=== PATIENT | male | born 1965 | race Caucasian/White ===

== ENCOUNTER 2019-02-08 13:20 | Outpatient (CLI) | payer OTHER ==
--- NOTE | 2019-02-08 17:59 | MRI ---
RIGHT KNEE MRI WITHOUT IV CONTRAST: 02/08/19 HISTORY: Right knee pain in lateral portion. Multiplanar, multisequence MRI examination of the right knee is performed. No significant abnormal rubi int effusion. 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 The later al meniscus appears unremarkable. There is an abnormal appearance to the medial meniscus extending fr om the posterior horn into the body, evidence for a complex tear with considerable meniscal volume lo ss of the body. There is abnormal thickening and prominent increased signal within the ACL, evidence for significant mucoid degeneration with an interosseous ganglion cyst within the medial aspect of th e lateral femoral condyle at the ACL insertion region, evidence for interosseous ganglion cyst. The p osterior cruciate ligament appears intact. Collateral ligament complexes are unremarkable. The irene ceps and patellar tendons are intact. There are some minimal subchondral cystic changes within the pr oximal tibia and intercondylar eminence region. IMPRESSION: Fairly extensive tear of the medial meniscus involving the posterior horn and body with marked menisc al volume loss of the posterior body. Increased thickening and abnormal fluid density within the ACL, evidence for mucoid degeneration. Interosseous ganglion cyst involving the medial aspect of the lat eral femoral condyle at the ACL insertion region. Minimal interosseous cystic changes involving the p roximal tibia including the intercondylar eminence region. 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 Other findings as above. POS: [facility]
== END 2019-02-08 13:21 | disposition home or self-care (01) ==
LOC: SCSMRI 13:20
PROVIDERS: ATTEND Orthopaedic Surgery
DX: M25.561 Pain in right knee (principal); S83.231A Complex tear of medial meniscus, current injury, right knee, initial encounter; M67.461 Ganglion, right knee

== ENCOUNTER 2019-02-23 18:17 | Emergency (ER) | payer OTHER ==
[2019-02-23 20:16] LABS: #Basophils 0.1 thou/uL (0.0-0.2); #Eosinphils 0.1 thou/uL (0.0-0.7); #Lymphocytes 2.5 thou/uL (1.20-3.40); #Monocytes 1.1 thou/uL (0.11-0.59); #Neutrophils 5.7 thou/uL (1.40-6.50); %Eosinophils 1.5 % (0.0-10.0); %Lymphocytes 26.4 % (21.0-51.0); %Monocytes 11.2 % (0.0-10.0); Hemoglobin 15.8 g/dL (14.0-18.0); Mean Corpuscular HGB CONC 34.5 g/dL (32.0-36.0); Mean Corpuscular Hemoglobin 32.4 pg (27.0-31.0); Mean Corpuscular Volume 93.7 fL (78.0-98.0); Mean Platelet Volume 8.4 fL (7.4-10.4); Platelet Count 154 thou/uL (130-400); RBC Distribution Width 11.9 % (11.5-14.5); Red Blood Cell (RBC) Count 4.89 mill/uL (4.70-6.10); White Blood Cell (WBC) Count 9.6 thou/uL (4.8-10.8)
[2019-02-23] MEDS ORDERED: Ketorolac Tromethamine 30 MG/ML VIAL ONE (20:24)
[2019-02-23] MEDS ORDERED: Dexamethasone 10 MG/ML VIAL ONE (20:24)
[2019-02-23] MEDS ORDERED: Clindamycin/D5W 900 mg/50 ml Premix Bag ONE (20:26)
[2019-02-23 20:41] LABS: ALT (SGPT) 150 U/L (8-55); AST (SGOT) 99 U/L (5-34); Albumin 4.3 g/dL (3.5-5.0); Alkaline Phosphatase 86 U/L (40-150); Anion Gap 14 mmol/L (10-20); BUN (Urea Nitrogen) 11 mg/dL (8.4-25.7); Bilirubin, Total 1.4 mg/dL (0.2-1.2); Calc. Creatinine Clearance 0 mL/min (70-130); Carbon Dioxide 27 mmol/L (22-29); Chloride 97 mmol/L (98-107); Estimated GFR-MDRD Greater than 90; Glucose 91 mg/dL (70-105); Potassium 3.8 mmol/L (3.5-5.1); Protein, Total 7.3 g/dL (6.0-8.3); Sodium 134 mmol/L (136-145)
== END 2019-02-23 21:09 | disposition home or self-care (01) ==
LOC: ERS 18:17
DX: K04.7 Periapical abscess without sinus (principal); K02.9 Dental caries, unspecified; F17.210 Nicotine dependence, cigarettes, uncomplicated
CPT/HCPCS: 36415; 80053; 83605; 85025; 96365; 96375; J1100; J1885; J3490

== ENCOUNTER 2020-12-09 16:10 | Outpatient (CLI) | payer OTHER | END 2020-12-09 16:11 | disposition home or self-care (01) | LOC: RAD 16:10 | PROVIDERS: ATTEND Family Medicine | DX: J45.30 Mild persistent asthma, uncomplicated (principal); R05 Cough; Z72.0 Tobacco use; R91.8 Other nonspecific abnormal finding of lung field | CPT/HCPCS: 71046 ==

== ENCOUNTER 2020-12-26 18:00 | Inpatient (IN) | payer OTHER ==
[~2020-12-26 18:00] MED LIST: Iopamidol-370 76% 500 ML 1 ML ONE
[2020-12-26 18:34] LABS: #Basophils 0.1 thou/uL (0.0-0.2); #Eosinphils 0.2 thou/uL (0.0-0.7); #Monocytes 0.6 thou/uL (0.11-0.59); #Neutrophils 3.2 thou/uL (1.40-6.50); %Basophils 1.2 % (0.0-1.0); %Eosinophils 2.9 % (0.0-10.0); %Lymphocytes 33.3 % (21.0-51.0); %Monocytes 9.5 % (0.0-10.0); %Neutrophils 53.2 % (42.0-75.0); Hemoglobin 12.2 g/dL (14.0-18.0); Mean Corpuscular HGB CONC 34.3 g/dL (32.0-36.0); Mean Corpuscular Hemoglobin 34.5 pg (27.0-31.0); Mean Platelet Volume 7.8 fL (7.4-10.4); Platelet Count 113 thou/uL (130-400); RBC Distribution Width 13.5 % (11.5-14.5); Red Blood Cell (RBC) Count 3.53 mill/uL (4.70-6.10); White Blood Cell (WBC) Count 6.1 thou/uL (4.8-10.8)
[2020-12-26 18:48] LABS: ALT (SGPT) 35 U/L (8-55); AST (SGOT) 84 U/L (5-34); Albumin 2.8 g/dL (3.5-5.0); Alkaline Phosphatase 87 U/L (40-110); Anion Gap 12 mmol/L (10-20); BUN (Urea Nitrogen) 19 mg/dL (8.4-25.7); Calc. Creatinine Clearance 0 mL/min (70-130); Calcium 8.4 mg/dL (7.8-10.44); Carbon Dioxide 25 mmol/L (22-29); Chloride 102 mmol/L (98-107); Globulin 3.8 g/dL (2.4-3.5); Glucose 108 mg/dL (70-105); Lipase 92 U/L (8-78); Platelet Morphology Comment Appears Decreased; Potassium 3.5 mmol/L (3.5-5.1); Protein, Total 6.6 g/dL (6.0-8.3); RBC Morphology Normal; Sodium 135 mmol/L (136-145)
[2020-12-26 19:25] LABS: Bilirubin Moderate (Negative); Blood, Urine Negative (Negative); Glucose, Urine (Dipstick) Negative (Negative); Ketone, Urine Trace mg/dL (Negative); Leukocyte Negative (Negative); Nitrite Positive (Negative); Protein, Urine (Dipstick) Trace mg/dL (Neg-Trace); Specific Gravity, Urine 1.025 (1.005-1.030); Urobilinogen > or = 8.0 mg/dL (Less than 2)
[2020-12-26 19:29] LABS: Mucous/LPF 1+ LPF (<2+); RBC/HPF None Seen HPF (0-3); Squamous Epithelial 0-3 HPF (0-3); WBC/HPF 0-3 HPF (0-3)
[2020-12-26 19:40] LABS: Bacteria/HPF 1+ HPF (None Seen)
[2020-12-26 19:42] LABS: Clarity Hazy (Clear)
[2020-12-26] MEDS ORDERED: cefTRIAXone\\ROCEPHIN 1 GM VIAL ONE (22:34)
[2020-12-27 01:38] VITALS: BMI 28.6
[2020-12-27] MEDS ORDERED: Acetaminophen 325 MG TAB PO PRN (02:29)
[2020-12-27] MEDS ORDERED: Ondansetron PF 4 MG/2 ML Vial IVP PRN (02:29)
[2020-12-27] MEDS ORDERED: Pantoprazole 40 MG VIAL IVP SCH ×2 (02:45→21:00)
[2020-12-27] MEDS ORDERED: Furosemide 20 MG/2 ML VIAL SLOW IVP SCH (02:45)
[2020-12-27] MEDS: Nicotine 14 MG PATCH TD SCH (02:57)
[2020-12-27 06:04] LABS: #Eosinphils 0.1 thou/uL (0.0-0.7); #Lymphocytes 1.9 thou/uL (1.20-3.40); #Monocytes 0.6 thou/uL (0.11-0.59); #Neutrophils 3.6 thou/uL (1.40-6.50); %Basophils 0.3 % (0.0-1.0); %Eosinophils 1.3 % (0.0-10.0); %Lymphocytes 30.6 % (21.0-51.0); %Monocytes 10.2 % (0.0-10.0); %Neutrophils 57.6 % (42.0-75.0); Hemoglobin 12.1 g/dL (14.0-18.0); Mean Corpuscular HGB CONC 33.5 g/dL (32.0-36.0); Mean Corpuscular Hemoglobin 33.8 pg (27.0-31.0); Mean Platelet Volume 7.9 fL (7.4-10.4); Platelet Count 115 thou/uL (130-400); RBC Distribution Width 13.3 % (11.5-14.5); Red Blood Cell (RBC) Count 3.59 mill/uL (4.70-6.10); White Blood Cell (WBC) Count 6.3 thou/uL (4.8-10.8)
[2020-12-27 06:10] LABS: INR-International Normal Ratio 1.5; Prothrombin Time 18.7 sec (12.0-14.7)
[2020-12-27 06:20] LABS: ALT (SGPT) 36 U/L (8-55); AST (SGOT) 84 U/L (5-34); Albumin 2.8 g/dL (3.5-5.0); Alkaline Phosphatase 76 U/L (40-110); Bilirubin, Direct 2.3 mg/dL (0.1-0.3); Bilirubin, Total 4.4 mg/dL (0.2-1.2); Protein, Total 6.7 g/dL (6.0-8.3)
[2020-12-27 06:21] LABS: Anion Gap 10 mmol/L (10-20); BUN (Urea Nitrogen) 16 mg/dL (8.4-25.7); Calc. Creatinine Clearance 141 mL/min (70-130); Calcium 8.4 mg/dL (7.8-10.44); Carbon Dioxide 24 mmol/L (22-29); Chloride 102 mmol/L (98-107); Glucose 105 mg/dL (70-105); Magnesium 1.8 mg/dL (1.6-2.6)
[2020-12-27 06:28] LABS: Potassium 3.3 mmol/L (3.5-5.1); Sodium 133 mmol/L (136-145)
[2020-12-27 08:02] LABS: HBCM Index 0.25 S/CO (0-0.79); HBSAg Index 0.17 S/CO (0-0.99); Hep A IgM AB Non-Reactive (NonReactive); Hep B Surf Ag Non-Reactive S/CO (NonReactive); Hepatitis B Core IgM Abs Non-Reactive (NonReactive)
[2020-12-27 08:03] LABS: Hep C IgG Ab Reflex HepC Qnt (NonReactive); Hep C Index 11.63 S/CO (0-0.79)
[2020-12-27 09:26] LABS: SARS-CoV-2 NAA Rapid Test Not Detected (NotDetected)
[2020-12-27] MEDS: Folic Acid 1 MG TAB PO SCH (10:16)
[2020-12-27] MEDS: Thiamine 100 MG TAB PO SCH (10:16)
[2020-12-27] MEDS ORDERED: Potassium Chloride 20 MEQ TAB PO SCH (11:15)
[2020-12-27] MEDS ORDERED: GoLYTELY 4,000 ml Bottle PO SCH (17:00)
[2020-12-27] MEDS: Furosemide 20 MG/2 ML VIAL SLOW IVP SCH (20:26)
[2020-12-27] MEDS: cefTRIAXone\\ROCEPHIN 1 GM in Sodium Chloride 0.9% 100 ML IVPB SCH (21:54)
[2020-12-28 01:14] LABS: BF Color Yellow; Body Fluid Source Ascites Body Fluid; Clarity Clear (Clear); RBC Count-Automated (BF) 110 /cu.mm; Tube # EDTA; WBC/Nucleated-Auto (BF) 179 uL
[2020-12-28 02:16] LABS: BF Segmented Neutrophils 3 %; Cell Count Non Hematic 48 %; Lymphocytes 48 %
[2020-12-28] MEDS: Nicotine 14 MG PATCH TD SCH ×2 (04:58→14:38)
[2020-12-28 07:10] LABS: #Basophils 0.1 thou/uL (0.0-0.2); #Eosinphils 0.2 thou/uL (0.0-0.7); #Lymphocytes 2.7 thou/uL (1.20-3.40); #Monocytes 0.5 thou/uL (0.11-0.59); #Neutrophils 2.7 thou/uL (1.40-6.50); %Basophils 1.6 % (0.0-1.0); %Eosinophils 2.9 % (0.0-10.0); %Lymphocytes 43.6 % (21.0-51.0); %Monocytes 7.5 % (0.0-10.0); %Neutrophils 44.4 % (42.0-75.0); Hemoglobin 12.5 g/dL (14.0-18.0); Mean Corpuscular HGB CONC 33.8 g/dL (32.0-36.0); Mean Corpuscular Hemoglobin 34.4 pg (27.0-31.0); Mean Platelet Volume 8.1 fL (7.4-10.4); Platelet Count 126 thou/uL (130-400); RBC Distribution Width 13.3 % (11.5-14.5); Red Blood Cell (RBC) Count 3.65 mill/uL (4.70-6.10); White Blood Cell (WBC) Count 6.2 thou/uL (4.8-10.8)
[2020-12-28 07:26] LABS: Anion Gap 13 mmol/L (10-20); BUN (Urea Nitrogen) 12 mg/dL (8.4-25.7); Calc. Creatinine Clearance 130 mL/min (70-130); Calcium 8.1 mg/dL (7.8-10.44); Carbon Dioxide 24 mmol/L (22-29); Chloride 104 mmol/L (98-107); Glucose 98 mg/dL (70-105); Magnesium 1.9 mg/dL (1.6-2.6); Potassium 3.8 mmol/L (3.5-5.1); Sodium 137 mmol/L (136-145)
[2020-12-28 07:28] LABS: ALT (SGPT) 42 U/L (8-55); AST (SGOT) 95 U/L (5-34); Albumin 2.8 g/dL (3.5-5.0); Alkaline Phosphatase 78 U/L (40-110); Bilirubin, Total 3.9 mg/dL (0.2-1.2); Protein, Total 6.9 g/dL (6.0-8.3)
[2020-12-28] MEDS: Folic Acid 1 MG TAB PO SCH (08:34)
[2020-12-28] MEDS: Potassium Chloride 20 MEQ TAB PO SCH (08:34)
[2020-12-28] MEDS: Thiamine 100 MG TAB PO SCH (08:34)
[2020-12-28] MEDS: Furosemide 20 MG/2 ML VIAL SLOW IVP SCH (08:36)
[2020-12-28] MEDS ORDERED: Fentanyl 100 MCG/2 ML VIAL ONE (10:58)
[2020-12-28] MEDS ORDERED: PROPOFOL 200 MG/20 ML VIAL ONE (11:13)
[2020-12-28] MEDS: Furosemide 20 MG TAB PO SCH (14:39)
[2020-12-28] MEDS: cefTRIAXone\\ROCEPHIN 1 GM in Sodium Chloride 0.9% 100 ML IVPB SCH (21:10)
[2020-12-29 06:40] LABS: #Basophils 0.1 thou/uL (0.0-0.2); #Eosinphils 0.2 thou/uL (0.0-0.7); #Monocytes 0.5 thou/uL (0.11-0.59); #Neutrophils 2.2 thou/uL (1.40-6.50); %Basophils 1.1 % (0.0-1.0); %Eosinophils 3.7 % (0.0-10.0); %Lymphocytes 40.8 % (21.0-51.0); %Neutrophils 44.4 % (42.0-75.0); Hemoglobin 10.6 g/dL (14.0-18.0); Mean Corpuscular HGB CONC 33.8 g/dL (32.0-36.0); Mean Corpuscular Hemoglobin 34.1 pg (27.0-31.0); Mean Platelet Volume 7.9 fL (7.4-10.4); Platelet Count 106 thou/uL (130-400); RBC Distribution Width 13.2 % (11.5-14.5); Red Blood Cell (RBC) Count 3.09 mill/uL (4.70-6.10); White Blood Cell (WBC) Count 4.9 thou/uL (4.8-10.8)
[2020-12-29 06:56] LABS: Anion Gap 8 mmol/L (10-20); BUN (Urea Nitrogen) 11 mg/dL (8.4-25.7); Calc. Creatinine Clearance 133 mL/min (70-130); Calcium 7.5 mg/dL (7.8-10.44); Carbon Dioxide 27 mmol/L (22-29); Chloride 106 mmol/L (98-107); Glucose 106 mg/dL (70-105); Potassium 3.4 mmol/L (3.5-5.1); Sodium 138 mmol/L (136-145)
[2020-12-29] MEDS: Furosemide 20 MG TAB PO SCH ×3 (09:31→16:27)
[2020-12-29] MEDS: Potassium Chloride 20 MEQ TAB PO SCH (09:31)
[2020-12-29] MEDS: Thiamine 100 MG TAB PO SCH (09:31)
[2020-12-29] MEDS: Folic Acid 1 MG TAB PO SCH (09:32)
[2020-12-29] MEDS: Nadolol 40 MG TAB PO SCH ×2 (09:32→11:46)
[2020-12-29] MEDS: Spironolactone 25 MG TAB PO SCH ×2 (09:32→11:45)
[2020-12-29] MEDS ORDERED: Calcium Carbonate 500 MG ChewTAB PO PRN (09:58)
[2020-12-29] MEDS ORDERED: Tamsulosin HCl 0.4 MG CAP PO SCH (15:30)
[2020-12-29] MEDS: Nicotine 14 MG PATCH TD SCH (16:31)
[2020-12-29] MEDS: Phenazopyridine HCl 100 MG TAB PO SCH (19:19)
[2020-12-29] MEDS: cefTRIAXone\\ROCEPHIN 1 GM in Sodium Chloride 0.9% 100 ML IVPB SCH (20:55)
[2020-12-30] MEDS ORDERED: Spironolactone 100 MG TAB PO SCH (08:00)
[2020-12-30] MEDS: Nadolol 40 MG TAB PO SCH (08:04)
[2020-12-30] MEDS: Phenazopyridine HCl 100 MG TAB PO SCH ×2 (08:04→12:51)
[2020-12-30] MEDS: Thiamine 100 MG TAB PO SCH (08:04)
[2020-12-30] MEDS: Folic Acid 1 MG TAB PO SCH (08:04)
[2020-12-30] MEDS: Nicotine 14 MG PATCH TD SCH (08:37)
[2020-12-30] MEDS ORDERED: Tamsulosin HCl 0.4 MG CAP PO SCH (09:00)
[2020-12-30 16:54] VITALS: BP 104/59; TEMP 97.8
[2021-01-01 11:40] LABS: HCV log10 3.669 (.); Hep C PCR-Quant 4670 IU/mL (.)
== END 2020-12-30 17:06 | disposition home or self-care (01) | DRG 433 ==
LOC: ERS 18:00 → T4-B 12-27 00:12 → OBSVTOIN 12-28 11:22
PROVIDERS: ADMIT Internal Medicine; ATTEND Internal Medicine
PROC: 0W9G3ZZ Drainage of Peritoneal Cavity, Percutaneous Approach (ICD-10-PCS; principal; 2020-12-28)
PROC: 0DJ08ZZ Inspection of Upper Intestinal Tract, Via Natural or Artificial Opening Endoscopic (ICD-10-PCS; 2020-12-28)
PROC: 0DBM8ZZ Excision of Descending Colon, Via Natural or Artificial Opening Endoscopic (ICD-10-PCS; 2020-12-28)
PROC: 0DBN8ZZ Excision of Sigmoid Colon, Via Natural or Artificial Opening Endoscopic (ICD-10-PCS; 2020-12-28)
PROC: 0T2BX0Z Change Drainage Device in Bladder, External Approach (ICD-10-PCS; 2020-12-30)
DX: K70.31 Alcoholic cirrhosis of liver with ascites (principal); N30.00 Acute cystitis without hematuria; D68.4 Acquired coagulation factor deficiency; K76.6 Portal hypertension; I85.10 Secondary esophageal varices without bleeding; Z20.822 Contact with and (suspected) exposure to COVID-19; K21.9 Gastro-esophageal reflux disease without esophagitis; F10.10 Alcohol abuse, uncomplicated; H53.8 Other visual disturbances; B18.2 Chronic viral hepatitis C; F17.210 Nicotine dependence, cigarettes, uncomplicated; D69.6 Thrombocytopenia, unspecified; D53.9 Nutritional anemia, unspecified; K31.89 Other diseases of stomach and duodenum; K57.30 Diverticulosis of large intestine without perforation or abscess without bleeding; I86.8 Varicose veins of other specified sites; D12.4 Benign neoplasm of descending colon; D12.5 Benign neoplasm of sigmoid colon; K22.70 Barrett's esophagus without dysplasia; R33.9 Retention of urine, unspecified; Z98.890 Other specified postprocedural states; Z86.11 Personal history of tuberculosis
CPT/HCPCS: 36415; 49083; 51702; 74177; 80048; 80053; 80074; 80076; 81003; 81015; 82042; 82105; 82274; 83690; 83735; 84155; 85025; 85060; 85610; 85730; 87070; 87086; 87205; 87522; 88305; 89051; 96365; 96366; 96375; 96376; C9113; G0378; J0696; J1940; J2704; J3010; J3490; Q9967; U0002; U0005

== ENCOUNTER 2022-02-07 07:38 | Outpatient (CLI) | payer OTHER | END 2022-02-07 07:39 | disposition home or self-care (01) | LOC: ULT 07:38 | PROVIDERS: ATTEND Internal Medicine | DX: K72.90 Hepatic failure, unspecified without coma (principal); I85.00 Esophageal varices without bleeding; B19.20 Unspecified viral hepatitis C without hepatic coma; K74.60 Unspecified cirrhosis of liver; K80.20 Calculus of gallbladder without cholecystitis without obstruction; R16.1 Splenomegaly, not elsewhere classified; D69.6 Thrombocytopenia, unspecified; D72.819 Decreased white blood cell count, unspecified | CPT/HCPCS: 36415; 76700; 85027 ==

== ENCOUNTER 2023-05-09 11:36 | Outpatient (CLI) | payer OTHER | END 2023-05-09 11:37 | disposition home or self-care (01) | LOC: BICRAD 11:36 | PROVIDERS: ATTEND Preventive Medicine Occupational Medicine | DX: Z02.71 Encounter for disability determination (principal); M51.16 Intervertebral disc disorders with radiculopathy, lumbar region; M47.816 Spondylosis without myelopathy or radiculopathy, lumbar region | CPT/HCPCS: 72100 ==

== ENCOUNTER 2023-12-13 07:37 | Outpatient (CLI) | payer OTHER | END 2023-12-13 07:38 | disposition home or self-care (01) | LOC: BICULT 07:37 | PROVIDERS: ATTEND Physician Assistant Medical | DX: K74.60 Unspecified cirrhosis of liver (principal); I85.10 Secondary esophageal varices without bleeding; K76.82 Hepatic encephalopathy; R63.5 Abnormal weight gain; R06.02 Shortness of breath; R53.83 Other fatigue; K80.20 Calculus of gallbladder without cholecystitis without obstruction | CPT/HCPCS: 76705 ==

== ENCOUNTER 2024-08-15 12:29 | Outpatient (CLI) | payer OTHER | END 2024-08-15 12:30 | disposition home or self-care (01) | LOC: BICCT 12:29 | PROVIDERS: ATTEND Family Medicine | DX: Z12.2 Encounter for screening for malignant neoplasm of respiratory organs (principal); F17.210 Nicotine dependence, cigarettes, uncomplicated | CPT/HCPCS: 71271 ==

== ENCOUNTER 2025-07-08 12:30 | Outpatient (CLI) | payer MEDICARE, MEDICAID | END 2025-07-08 12:31 | disposition home or self-care (01) | LOC: SCSULT 12:30 | PROVIDERS: ATTEND Physician Assistant Medical | DX: K74.60 Unspecified cirrhosis of liver (principal); I85.00 Esophageal varices without bleeding; K76.82 Hepatic encephalopathy; R11.2 Nausea with vomiting, unspecified; K21.9 Gastro-esophageal reflux disease without esophagitis; Z86.0100 Personal history of colon polyps, unspecified; R16.1 Splenomegaly, not elsewhere classified; K80.10 Calculus of gallbladder with chronic cholecystitis without obstruction | CPT/HCPCS: 76705 ==